=== PATIENT | male | born 1955 | race Caucasian/White ===

== ENCOUNTER 2020-12-06 07:32 | Day surgery (SDC) | payer OTHER ==
[2020-12-04 11:06] VITALS: BMI 30.1
[2020-12-06 07:47] VITALS: TEMP 97.9
[2020-12-06] MEDS ORDERED: PROPOFOL 20 ML ONE ×2 (07:51)
[2020-12-06] MEDS ORDERED: LIDOCAINE HCL/PF 2% SDV 5ML VIAL ONE (07:51)
[2020-12-06 08:47] VITALS: BP 105/62; PULSE 67
== END 2020-12-06 09:06 | disposition home or self-care (01) ==
LOC: FASU-ENDO 07:32
PROVIDERS: ATTEND Internal Medicine Gastroenterology
PROC: 0DJD8ZZ Inspection of Lower Intestinal Tract, Via Natural or Artificial Opening Endoscopic (ICD-10-PCS; principal; 2020-12-06 08:19)
DX: K57.30 Diverticulosis of large intestine without perforation or abscess without bleeding (principal)